=== PATIENT | female | born 1960 | race Caucasian/White ===

== ENCOUNTER 2019-07-23 10:28 | Emergency (ER) | payer OTHER, MEDICAID, SELFPAY ==
[2019-07-23 10:37] VITALS: BP 109/58; PULSE 63; RESP 12; TEMP 36.1; O2SAT 99
[2019-07-23 11:04] LABS: Alanine Aminotransferase 17 IU/L (<35)
--- NOTE | 2019-07-23 11:45 | ED.GENADULT ---
HPI - General Adult <KELLY Buck-BC - Last Filed: 07/23/19 12:50> General Chief complaint: Blood/Body fluid exposure Stated complaint: needle stick Time Seen by Provider: 07/23/19 11:02 Source: patient Mode of arrival: Ambulatory Limitations: no limitations History of Present Illness HPI narrative: The patient is a 58-year-old female current smoker with history of ?autoimmune situation who presents by herself for chief complaint of a needlestick at 2:00 p.m. yesterday. She states her tetanus might be up-to-date, but she is not sure. She states she has had the hepatitis-B vaccination. She states she was helping her friend who is a diabetic when she accidentally stuck herself with a needle yesterday at 2:00 p.m.. She has not informed her friend that she has stuck herself. She has not followed up with primary care provider. She states her friend is going on hospice, she has very low suspicion of hepatitis, HIV, states that she recently tested negative she thinks. She states that she stuck herself on her left palm, it was not bad enough that she blood. She states that there was a hole in her skin, but she was not bleeding. She has washed out with soap and water copiously. Related Data Previous Rx's Medication Instructions Recorded albuterol sulfate [Ventolin HFA] 1 puff INH Q4H PRN #1 inh 03/22/16 Allergies Allergy/AdvReac Type Severity Reaction Status Date / Time ibuprofen [IBUPROFEN] Allergy Unknown Verified 07/23/19 11:47 indomethacin [INDOMETHACIN] Allergy Unknown Verified 07/23/19 11:47 prednisone [PREDNISONE] Allergy Unknown Verified 07/23/19 11:47 Review of Systems <KELLY Buck-BC - Last Filed: 07/23/19 12:50> Review of Systems Narrative: GENERAL: Denies chills, fatigue, malaise, fever, sweats. HEENT: Denies sinus pain, ear pain, sore throat, difficulty swallowing, dizziness. RESPIRATORY: Denies dyspnea, cough, wheezing, hemoptysis, sputum. CARDIOVASCULAR: Denies chest pain, palpitations, orthopnea, edema, GASTROINTESTINAL: Denies nausea, vomiting, abdominal pain, diarrhea, constipation, melena. : Denies dysuria, frequency, incontinence, hematuria, urinary retention. MUSCULOSKELETAL: denies weakness, joint pain, or bony pain SKIN: See HPI NEUROLOGIC: Denies weakness, headache, numbness, change in speech, confusion, seizures, incoordination. PSYCHIATRIC: No concerning psychosocial issues. 12 point review of systems is negative except for those stated above Patient History <JOE Buck - Last Filed: 07/23/19 12:50> Surgical History History of carpal tunnel repair Family History Father Drug abuse Mother Bipolar 1 disorder, depressed Social History Smoking Status: Current some day smoker Smoking Status: Current some day smoker alcohol intake frequency: holidays/special occasions only Substance Use Type: does not use Exam <JOE Buck - Last Filed: 07/23/19 12:50> Narrative Exam Narrative: GENERAL: This is a well-nourished, well-developed patient, no acute distress HEAD: Atraumatic. Normocephalic. No temporal or scalp tenderness. EYES: Pupils equal round and reactive. Extraocular motions intact. No scleral icterus. No injection or drainage. ENT: Nose without bleeding, purulent drainage or septal hematoma. Throat without erythema, tonsillar hypertrophy or exudate. Uvula midline. Airway patent. NECK: Trachea midline. No JVD or lymphadenopathy. Supple, nontender, no meningeal signs. CARDIOVASCULAR: Regular rate and rhythm= RESPIRATORY: No cough. No increased respiratory effort. No accessory muscle use. Speaking full sentences. EXTREMITIES: Using all extremities fully. BACK: Nontender without deformity or crepitance. No flank tenderness. NEURO: AOx3. SKIN: No visible puncture gunter on bilateral hands. Initial Vital Signs Initial Vital Signs: Vital Signs Temperature 96.9 F L 07/23/19 10:37 Pulse Rate 63 07/23/19 10:37 Respiratory Rate 12 07/23/19 10:37 Blood Pressure 109/58 L 07/23/19 10:37 Pulse Oximetry 99 07/23/19 10:37 <Tracye Greene DO - Last Filed: 07/24/19 07:21> Initial Vital Signs Initial Vital Signs: Vital Signs Temperature 96.9 F L 07/23/19 10:37 Pulse Rate 63 07/23/19 10:37 Respiratory Rate 12 07/23/19 10:37 Blood Pressure 109/58 L 07/23/19 10:37 Pulse Oximetry 99 07/23/19 10:37 Course <JOE Buck - Last Filed: 07/23/19 12:50> Orders Ordered: Discontinued Medications Diphtheria/Tetanus/Acell Pertussis (Adacel) 0.5 ml IM .ONCE ONE Stop: 07/23/19 11:16 Last Admin: 07/23/19 11:47 Dose: 0.5 ml Documented by: ANTOINE Vital Signs Vital signs: Vital Signs - 8 hr 07/23/19 10:37 Temperature 96.9 F L Pulse Rate 63 Respiratory Rate 12 Blood Pressure 109/58 L Pulse Oximetry 99 <Tracey Greene DO - Last Filed: 07/24/19 07:21> Orders Ordered: Discontinued Medications Diphtheria/Tetanus/Acell Pertussis (Adacel) 0.5 ml IM .ONCE ONE Stop: 07/23/19 11:16 Last Admin: 07/23/19 11:47 Dose: 0.5 ml Documented by: ANTOINE Vital Signs Vital signs: Vital Signs - 8 hr 07/23/19 10:37 Temperature 96.9 F L Pulse Rate 63 Respiratory Rate 12 Blood Pressure 109/58 L Pulse Oximetry 99 Medical Decision Making <JOE Buck - Last Filed: 07/23/19 12:50> Lab Data Labs: Lab Results 07/23/19 07/23/19 Range/Units 10:48 10:48 ALT 17 (<35) IU/L Hep Bs Antigen Negative (NEGATIVE) s/c Hepatitis C Antibody Negative (NEGATIVE) s/c HIV 1&2 Ab/P24 Ag 4thGn Negative (NEGATIVE) MDM Narrative Medical decision making narrative: The patient is a 58-year-old female who presents with a chief complaint of a needlestick injury yesterday from a friend at home. Patient states that she believes she is negative for HIV, hepatitis etcetera. She has not informed the source patient of the injury. The patient had lab work drawn as an exposure panel. Her tetanus is updated as she was not sure when her last tetanus was. 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 She did give consent for testing of HIV. She does not want any prophylactic treatment at this point time as the exposure is low risk. She also states that she did not bleed from the needle stick. I discussed at length the importance of follow-up with primary care provider, she may need repeat lab work, following up the source patient etcetera. Patient has no questions or concerns upon discharge and states understanding of return precautions as well as follow-up care. <Tracey Greene DO - Last Filed: 07/24/19 07:21> Lab Data Labs: Lab Results 07/23/19 07/23/19 Range/Units 10:48 10:48 ALT 17 (<35) IU/L Hep Bs Antigen Negative (NEGATIVE) s/c Hepatitis C Antibody Negative (NEGATIVE) s/c HIV 1&2 Ab/P24 Ag 4thGn Negative (NEGATIVE) Discharge Plan Departure Patient Disposition: Home Clinical Impression: Needle stick injury Discharge Date/Time: 07/23/19 12:33 Instructions: DI for Accidental Exposure to Body Fluids Activity Restrictions/Additional Instructions: Please follow-up with primary care provider in the next few days. We have baseline exposure labs pending here, we will need follow-up lab work. I also suggest discussing this with the source patient as well. Please come back to emergency department for any acute concerns Prescriptions: No Action albuterol sulfate [Ventolin HFA] 90 MCG/PUFF HFA aerosol inhaler 1 puff INH Q4H PRNQty: 1 RF: 0 Referrals: Yuridia Hays DO [Primary Care Provider] -
[2019-07-23] MEDS: TET,DIPH,PERTUSS(ACELL),VAC/PF 0.5 ML SYRINGE IM (11:47)
[2019-07-23 11:57] LABS: Hepatitis B Surface Antigen NEGATIVE s/c (NEGATIVE)
[2019-07-23 12:04] LABS: HIV 1 & 2 Ab/Ag 4th Gen Combo NEGATIVE (NEGATIVE); Hep C Virus Ab w/Reflex Quant NEGATIVE s/c (NEGATIVE)
[2019-07-24 15:34] LABS: Hepatitis B Surf Ab Qualitativ Reactive (Nonreactive)
== END 2019-07-23 12:33 | disposition home or self-care (01) ==
PROVIDERS: Emergency Medicine; Emergency Provider Nurse Practitioner Family; Family Provider Family Medicine; PCP Family Medicine
DX: Z77.21 Contact with and (suspected) exposure to potentially hazardous body fluids (principal); W46.0XXA Contact with hypodermic needle, initial encounter; Z23 Encounter for immunization
CPT/HCPCS: 36415; 84460; 86706; 86803; 87340; 87389; 90471; 99283; 90715

== ENCOUNTER 2020-02-02 21:04 | Emergency (ER) | payer OTHER, MEDICAID, SELFPAY ==
[2020-02-02 21:11] VITALS: BP 114/72; PULSE 60; RESP 17; TEMP 36.6; O2SAT 97; BMI 23.3
--- NOTE | 2020-02-02 21:52 | ED.GENADULT ---
HPI - General Adult General Chief complaint: Extremity Injury, Upper Stated complaint: multiple complaints Time Seen by Provider: 02/02/20 21:30 Source: patient Mode of arrival: Family Vehicle Limitations: no limitations History of Present Illness HPI narrative: 59 year old former smoker with history of asthma and some vague chronic but episodic neurologic problems presents with various complaints, but is most concerned about a painful purple bruiselike lesion that spontaneously appeared at the base of her thumb earlier today. She says it happened out of nowhere and denies any injury. She has an achy pain that is worse with motion or palpation. She denies numbness or tingling. She states it has happened a few times in the past 10 years. Additionally she has pain in her left elbow since bumping it a few weeks ago. It is much better now, but still bothers her on occasion and seems to be worse with motion. Finally she also has pain, swelling, and some brusiing on the medial aspect of her Right ankle since rolling it a few weeks ago. She denies numbness, tingling, or weakness. Onset (ago): week(s) Radiation: non-radiation Severity: mild Quality: aching Pain Consistency: constant Relieving factors: none Exacerbating factors: movement Treatments prior to arrival: none Related Data Previous Rx's Medication Instructions Recorded albuterol sulfate [Ventolin HFA] 1 puff INH Q4H PRN #1 inh 03/22/16 Allergies Allergy/AdvReac Type Severity Reaction Status Date / Time ibuprofen [IBUPROFEN] Allergy Unknown Verified 02/02/20 21:17 indomethacin [INDOMETHACIN] Allergy Unknown Verified 02/02/20 21:17 prednisone [PREDNISONE] Allergy Unknown Verified 02/02/20 21:17 Review of Systems Constitutional Constitutional: Denies chills, Denies fatigue, Denies fever(s), Denies frequent falls, Denies lethargy and Denies weakness Eyes Eyes: Denies change in vision, Denies eye discharge, Denies irritation and Denies loss of vision ENT Ears, Nose, Mouth, and Throat: Denies change in voice, Denies dizziness, Denies neck pain, Denies sore throat and Denies throat swelling Cardiovascular Cardiovascular: Denies chest pain, Denies irregular heart rhythm, Denies lightheadedness, Denies palpitations, Denies dyspnea, Denies dyspnea on exertion and Denies orthopnea Respiratory Respiratory: Denies cough, Denies dyspnea, Denies dyspnea on exertion and Denies wheezing Gastrointestinal Gastrointestinal: Denies abdominal pain, Denies change in bowel habits, Denies diarrhea, Denies nausea and Denies vomiting Musculoskeletal Musculoskeletal: Reports joint swelling, Reports limited range of motion, Denies neck pain and Denies numbness Integumentary/Breasts Skin/Breast: Denies pruritus, Denies erythema, Denies rash, Reports unusual bruising and Denies wounds Neurologic Neurologic: Denies behavioral changes, Denies confusion, Denies dizziness, Denies frequent falls, Denies loss of vision, Denies numbness and Denies weakness Psychiatric Psychiatric: Denies anxiety, Denies behavioral changes, Denies confusion, Denies depression, Denies homicidal ideation and Denies suicidal ideation Endocrine Endocrine: Denies fatigue, Denies flushing and Denies palpitations Hematologic/Lymphatic Hematologic/Lymphatic: Denies easy bruising Allergic/Immunologic Allergic/Immunologic: Denies urticaria, Denies throat swelling and Denies wheezing Patient History Surgical History History of carpal tunnel repair Family History Father Drug abuse Mother Bipolar 1 disorder, depressed Social History Smoking Status: Former smoker Smoking Status: Former smoker alcohol intake frequency: a few times a week Alcohol type: beer Substance Use Type: marijuana Exam Narrative Exam Narrative: GENERAL: [59] year old patient appears stated age. Well-nourished, well-developed patient, in mild distress. HEAD: Atraumatic. Normocephalic. EYES: Pupils equal round and reactive. Extraocular motions intact. No scleral icterus. No injection or drainage. ENT: Nose without bleeding, purulent drainage. Throat without erythema, tonsillar hypertrophy or exudate. Airway patent. NECK: Trachea midline. Non tender CARDIOVASCULAR: Regular rate and rhythm without murmurs, gallops, or rubs. RESPIRATORY: Clear to auscultation. Breath sounds equal bilaterally. No wheezes, rales, or rhonchi. GASTROINTESTINAL: Abdomen soft, non-tender, nondistended. EXTREMITIES: Quarter sized area of ecchymosis, tender to palp on thenar eminence of right hand. No break in the skin. No bony pain. No fluctuance. Left elbow has full painless range of motion, no deformity, full strength. Right ankle with pain and mild ecchymosis on medial malleolus. No pain over anterior talus, lateral malloelus. No ligamentous instability BACK: Nontender without deformity or crepitance. No flank tenderness. NEURO: AOx3. SKIN: No rash or erythema of visible areas Initial Vital Signs Initial Vital Signs: Vital Signs Temperature 97.8 F 02/02/20 21:11 Pulse Rate 60 02/02/20 21:11 Respiratory Rate 17 02/02/20 21:11 Blood Pressure 114/72 02/02/20 21:11 Pulse Oximetry 97 02/02/20 21:11 Course Orders Ordered: ED Orders 02/02/20 21:53 XR ankle RT min 3V Stat XR elbow LT min 3V Stat 02/02/20 22:27 Basic Metabolic Panel Stat Complete Blood Count AUTO DIFF Stat Prothrombin Time INR Stat Vital Signs Vital signs: Vital Signs - 8 hr 02/02/20 21:11 02/02/20 23:01 Temperature 97.8 F Pulse Rate 60 56 L Respiratory Rate 17 16 Blood Pressure 114/72 120/60 Pulse Oximetry 97 98 Medical Decision Making Lab Data Result diagrams: 02/02/20 22:27 02/02/20 22:27 Labs: Lab Results 02/02/20 02/02/20 02/02/20 Range/Units 22:27 22:27 22:27 WBC 6.1 (4.5-11.0) X10^3/uL RBC 4.53 (4.0-5.2) X10^6/uL Hgb 13.1 (12.0-16.0) g/dL Hct 39.7 (36-46) % MCV 87.5 (80-100) fL MCH 28.9 (26-34) PG MCHC 33.0 (30-36) % RDW 13.4 (11.6-14.8) % Plt Count 194 (150-400) X10^3/uL Neut % (Auto) 49.7 L (50-75) % Lymph % (Auto) 38.5 (25-40) % [place] % (Auto) 8.3 (3-14) % Eos % (Auto) 2.1 (2-4) % Baso % (Auto) 1.4 (0-2) % Neut # (Auto) 3000 (8060-4244) /uL Lymph # (Auto) 2300 (5996-0873) /uL [place] # (Auto) 500 (0-900) /uL Eos # (Auto) 100 (0-450) /uL Baso # (Auto) 100 (0-100) /uL PT 11.8 (10.1-12.7) SECONDS INR 1.0 (0.9-1.3) Sodium 136 L (137-145) mmol/L Potassium 4.0 (3.4-5.1) mmol/L Chloride 104 (98-107) mmol/L Carbon Dioxide 27 (22-32) mmol/L BUN 19 H (7-17) mg/dL Creatinine 0.79 (0.52-1.04) mg/dL Estimated GFR > 60.0 (>60) mL/min BUN/Creatinine Ratio 24.1 H (6-22) Glucose 97 (80-110) mg/dL Calcium 9.2 (8.4-10.2) mg/dL Imaging Data Extremity x-ray #1: Attestation: I personally reviewed and interpreted this imaging study as follows: My Impression: NESTOR Ankle Xray: Attestation: I personally reviewed and interpreted this imaging study as follows: My Impression: NESTOR MDM Narrative Medical decision making narrative: NO obvious abnormal findings on xrays and very reassuring physical exam. Regarding the spontaneous bruise on thumb, labs reviewed and no platelet or coag abnormalites, no injury. Discharge Plan Departure Patient Disposition: Home Clinical Impression: Left elbow pain Inversion sprain of right ankle Qualifiers: Encounter type: initial encounter Qualified Code(s): S93.401A - Sprain of unspecified ligament of right ankle, initial encounter Paroxysmal hematoma of right hand Qualifiers: Encounter type: initial encounter Qualified Code(s): S60.221A - Contusion of right hand, initial encounter Discharge Date/Time: 02/02/20 23:01 Instructions: DI for Ankle Sprain, DI for Hematoma (Bruise), DI for Elbow Sprain Activity Restrictions/Additional Instructions: *You have been diagnosed with [nonspecific hematoma right hand with reassuring labs. Unremarkable x-ray of right ankle and elbow.] *What to do: *Take medications as directed *Follow up with your primary care provider in 2-3 days, call for an appointment. Let them know you were seen in the Emergency Department and that we ask that you be seen in follow up *Return to ER if you should have any new, worsening or concerning symptoms Prescriptions: No Action albuterol sulfate [Ventolin HFA] 90 MCG/PUFF HFA aerosol inhaler 1 puff INH Q4H PRNQty: 1 RF: 0 Referrals: Yuridia Hays DO [Primary Care Provider] -
--- NOTE | 2020-02-02 21:53 | DI.RAD.S_ITS ---
PROCEDURE: XR ELBOW LT MIN 3V INDICATIONS: left elbow pain since injury 3 weeks ago TECHNIQUE: 3 views of the elbow were acquired. COMPARISON: None. FINDINGS: Bones: No fractures or dislocations. No suspicious bony lesions. Soft tissues: No elbow joint effusion. No suspicious soft tissue calcifications. IMPRESSION: No fracture. No osseous lesion. If symptoms and/or clinical suspicion for pathology persists, further assessment with repeat radiographs (7-10 days) or advanced imaging (e.g. CT, MRI or bone scan) may be helpful. Dictated by: Maria Esther Reaves MD, PhD on 02/03/2020 at 8:29 Approved by: Maria Esther Reaves MD, PhD on 02/03/2020 at 8:30
--- NOTE | 2020-02-02 21:53 | DI.RAD.S_ITS ---
PROCEDURE: XR ANKLE RT MIN 3V INDICATIONS: right ankle injury, bruising and pain TECHNIQUE: 3views of the ankle were acquired. COMPARISON: None. FINDINGS: Bones: No fractures or dislocations. Ankle mortise is normally aligned. No suspicious bony lesions. Soft tissues: No tibiotalar joint effusion. Achilles tendon appears normal. IMPRESSION: No fracture. No osseous lesion. If symptoms and/or clinical suspicion for pathology persists, further assessment with repeat radiographs (7-10 days) or advanced imaging (e.g. CT, MRI or bone scan) may be helpful. Dictated by: Maria Esther Reaves MD, PhD on 02/03/2020 at 8:30 Approved by: Maria Esther Reaves MD, PhD on 02/03/2020 at 8:31
[2020-02-02 22:38] LABS: Add Manual Diff / Slide Review NO; Basophils Absolute Auto 100 /uL (0-100); Basophils Percent Auto 1.4 % (0-2); Eosinophils Absolute Auto 100 /uL (0-450); Eosinophils Percent Auto 2.1 % (2-4); Hematocrit 39.7 % (36-46); Hemoglobin 13.1 g/dL (12.0-16.0); Lymphocytes Absolute Auto 2300 /uL (1100-4500); Lymphocytes Percent Auto 38.5 % (25-40); Mean Corpuscular Hemoglobin 28.9 PG (26-34); Mean Corpuscular Volume 87.5 fL (80-100); Monocytes Absolute Auto 500 /uL (0-900); Monocytes Percent Auto 8.3 % (3-14); Neutrophils Absolute Auto 3000 /uL (1500-7000); Neutrophils Percent Auto 49.7 % (50-75); Platelet Count 194 X10^3/uL (150-400); Red Blood Cell Count 4.53 X10^6/uL (4.0-5.2); Red Cell Distribution Width 13.4 % (11.6-14.8); White Blood Cell Count 6.1 X10^3/uL (4.5-11.0)
[2020-02-02 22:43] LABS: Prothrombin Time 11.8 SECONDS (10.1-12.7)
[2020-02-02 22:46] LABS: BUN Creatinine Ratio 24.1 (6-22); Blood Urea Nitrogen 19 mg/dL (7-17); Calcium 9.2 mg/dL (8.4-10.2); Carbon Dioxide 27 mmol/L (22-32); Chloride 104 mmol/L (98-107); Estimated Glomerular Filt Rate > 60.0 mL/min (>60); Glucose 97 mg/dL (80-110); HEMOLYSIS 41 (0-50); Sodium 136 mmol/L (137-145)
[2020-02-02 23:01] VITALS: BP 120/60; PULSE 56; RESP 16; O2SAT 98
== END 2020-02-02 23:01 | disposition home or self-care (01) ==
PROVIDERS: Emergency Provider Emergency Medicine; Family Provider Family Medicine; PCP Family Medicine; Referring Provider Internal Medicine
DX: S93.401A Sprain of unspecified ligament of right ankle, initial encounter (principal); S60.221A Contusion of right hand, initial encounter; M25.522 Pain in left elbow
CPT/HCPCS: 36415; 73080; 73610; 80048; 85025; 85610; 99284

== ENCOUNTER → 2020-05-07 13:45 | Outpatient (CLI) | payer OTHER, MEDICAID, SELFPAY | PROVIDERS: Family Provider Family Medicine; PCP Internal Medicine; Referring Provider Internal Medicine; Visit Provider Internal Medicine | DX: M85.852 Other specified disorders of bone density and structure, left thigh (principal); Z78.0 Asymptomatic menopausal state; Z82.62 Family history of osteoporosis | CPT/HCPCS: 77080 ==

== ENCOUNTER 2023-02-18 15:22 | Emergency (ER) | payer OTHER, MEDICAID, SELFPAY ==
[2023-02-18] VITALS (31 sets, daily range): BP systolic 113–158; BP diastolic 56–115; PULSE 48–64; RESP 15–36; TEMP 36.6; O2SAT 96–99; BMI 24.2
--- NOTE | 2023-02-18 15:39 | DI.RAD.S_ITS ---
PROCEDURE: XR CHEST 1V INDICATIONS: chest pain TECHNIQUE: One view of the chest was acquired. COMPARISON: [facility], , CHEST 2 VIEW, 06/22/2011, 15:19. FINDINGS: Surgical changes and devices: None. Lungs and pleura: Lungs are clear. No pleural effusions or pneumothorax. Mediastinum: Mediastinal contours appear normal. Heart size is normal. Bones and chest wall: No suspicious bony lesions. Overlying soft tissues appear unremarkable. IMPRESSION: No acute cardiopulmonary findings Approved by: Gerardo Arthur M.D. on 02/18/2023 at 15:49
[2023-02-18 16:29] LABS: Add Manual Diff / Slide Review NO; Basophils Absolute Auto 100 /uL (0-100); Basophils Percent Auto 0.8 % (0-2); Eosinophils Absolute Auto 100 /uL (0-450); Eosinophils Percent Auto 1.4 % (2-4); Hematocrit 40.1 % (36-46); Hemoglobin 13.7 g/dL (12.0-16.0); Lymphocytes Absolute Auto 1900 /uL (1100-4500); Lymphocytes Percent Auto 28.3 % (25-40); Mean Corpuscular HGB Conc 34.1 % (30-36); Monocytes Absolute Auto 500 /uL (0-900); Monocytes Percent Auto 7.9 % (3-14); Neutrophils Absolute Auto 4200 /uL (1500-7000); Neutrophils Percent Auto 61.6 % (50-75); Platelet Count 191 X10^3/uL (150-400); Red Blood Cell Count 4.72 X10^6/uL (4.0-5.2); White Blood Cell Count 6.9 X10^3/uL (4.5-11.0)
[2023-02-18 16:34] LABS: INR 1.1 (0.9-1.3); Prothrombin Time 12.2 SECONDS (10.1-12.7)
[2023-02-18 16:36] LABS: PTT Partial Thromboplastin Tim 29 SECONDS (26-36)
[2023-02-18 16:37] LABS: Alanine Aminotransferase 17 IU/L (<35); Albumin 4.2 g/dL (3.5-5.0); Albumin Globulin Ratio 1.6 (1.0-2.8); Alkaline Phosphatase 51 U/L (38-126); Aspartate Aminotransferase 29 IU/L (14-36); BUN Creatinine Ratio 21.9 (6-22); Bilirubin Total 0.8 mg/dL (0.2-1.3); Blood Urea Nitrogen 16 mg/dL (7-17); Calcium 9.2 mg/dL (8.4-10.2); Carbon Dioxide 26 mmol/L (22-32); Chloride 107 mmol/L (98-107); Creatine Kinase 72 U/L (30-135); Estimated Glomerular Filt Rate > 60 mL/min (>60); Globulin 2.7 g/dL (1.7-4.1); Glucose 103 mg/dL (80-110); Lipase 91 U/L (23-300); Potassium 3.9 mmol/L (3.4-5.1); Sodium 138 mmol/L (137-145); Total Protein 6.9 g/dL (6.3-8.2)
[2023-02-18 16:40] LABS: HEMOLYSIS 56 (0-50)
[2023-02-18 16:48] LABS: Troponin I < 0.012 ng/mL (0.01-0.034)
[2023-02-18 18:43] LABS: Troponin I < 0.012 ng/mL (0.01-0.034)
--- NOTE | 2023-02-18 18:55 | ED_ITS ---
HPI - Chest Pain General Chief Complaint: Chest Pain Stated Complaint: Low BP, Chest Pain Time Seen by Provider: 02/18/23 16:31 Source: patient Mode of arrival: Ambulatory Limitations: no limitations History of Present Illness HPI narrative: 62-year-old female former smoker presents with a chief complaint low blood pressures reading in the 70s and 80s over the course of the night which she states happens on occasion but seemingly with increasing frequency. She does not take any blood pressure meds. Additionally she complained of some left- sided chest pain this morning that seemed to go away when she thumps her chest. She is asymptomatic on her arrival. She states that she is been having troubles with episodic low blood pressure ever since she had some undiagnosed infectious process that she thinks may have been meningitis back in 2017. She denies any current chest pain or shortness of breath. She denies exertional symptoms or cardiac equivalent such as dizziness, weakness, lightheadedness. She denies exercise intolerance. Related Data Previous Rx's Medication Instructions Recorded albuterol sulfate 90 mcg/actuation 1 puff INH Q4H PRN #1 inh 03/22/16 aerosol inhaler (Ventolin HFA) Allergies Allergy/AdvReac Type Severity Reaction Status Date / Time ibuprofen [IBUPROFEN] Allergy Unknown Verified 02/02/20 21:17 indomethacin [INDOMETHACIN] Allergy Unknown Verified 02/02/20 21:17 prednisone [PREDNISONE] Allergy Unknown Verified 02/02/20 21:17 Review of Systems Review of Systems Narrative: GENERAL: See HPI HEENT: Denies sinus pain, ear pain, sore throat, difficulty swallowing, dizzi ness. RESPIRATORY: Denies dyspnea, cough, wheezing, hemoptysis, sputum. CARDIOVASCULAR: See HPI GASTROINTESTINAL: Denies nausea, vomiting, abdominal pain, diarrhea, constipation, melena. : Denies dysuria, frequency, incontinence, hematuria, urinary retention. MUSCULOSKELETAL: denies weakness, joint pain, or bony pain SKIN: Denies rash, skin lesions, or other NEUROLOGIC: Denies weakness, headache, numbness, change in speech, confusion, seizures, incoordination. PSYCHIATRIC: No concerning psychosocial issues. 12 point review of systems is negative except for those stated above Patient History Surgical History History of carpal tunnel repair Family History Father Drug abuse Mother Bipolar 1 disorder, depressed Social History Smoking Status: Former smoker Smoking Status: Former smoker alcohol intake frequency: a few times a week Alcohol type: beer Substance Use Type: marijuana Exam Narrative Exam Narrative: GENERAL: [62] year old patient appears stated age. Well-developed patient, in mild distress. HEAD: Atraumatic. Normocephalic. EYES: Pupils equal round and reactive. Extraocular motions intact. No scleral icterus. No injection or drainage. ENT: Nose without bleeding, purulent drainage. Throat without erythema, tonsillar hypertrophy or exudate. Airway patent. NECK: Trachea midline. Non tender CARDIOVASCULAR: Regular rate and rhythm without murmurs, gallops, or rubs. RESPIRATORY: Clear to auscultation. Breath sounds equal bilaterally. No wheezes, rales, or rhonchi. GASTROINTESTINAL: Abdomen soft, non-tender, nondistended. EXTREMITIES: No edema or joint tenderness. BACK: Nontender without deformity or crepitance. No flank tenderness. NEURO: AOx3. SKIN: No rash or erythema of visible areas Initial Vital Signs Initial Vital Signs: Vital Signs Temperature 98 F 02/18/23 15:29 Pulse Rate 64 02/18/23 15:29 Respiratory Rate 22 02/18/23 15:29 Blood Pressure 147/67 H 02/18/23 15:29 Pulse Oximetry 98 02/18/23 15:29 Oxygen Delivery Method Room Air 02/18/23 15:29 Scores HEART Score Heart Score history: Slightly Suspicious Heart Score EKG: Normal Heart Score Age: 45-64 years old Heart Score risk factors: No known risk factors Heart Score troponin: < or = to normal limit Heart Score Total: 1 Course Orders Ordered: ED Orders 02/18/23 18:15 EKG-12 Lead Stat Vital Signs Vital signs: Vital Signs - 8 hr 02/18/23 19:15 02/18/23 19:15 02/18/23 19:20 Pulse Rate 51 L Respiratory Rate 19 Blood Pressure 125/56 L 113/58 L Pulse Oximetry 97 02/18/23 19:20 02/18/23 19:26 02/18/23 19:26 Pulse Rate 58 L 54 L Respiratory Rate 23 29 H Blood Pressure 145/65 H Pulse Oximetry 96 97 02/18/23 19:30 02/18/23 19:30 Pulse Rate 53 L Respiratory Rate 25 H Blood Pressure 137/63 Pulse Oximetry 97 MDM - Chest Pain Lab Data 02/18/23 16:17 02/18/23 16:17 Labs: Lab Results 02/18/23 02/18/23 02/18/23 Range/Units 16:17 16:17 16:17 WBC 6.9 (4.5-11.0) X10^3/uL RBC 4.72 (4.0-5.2) X10^6/uL Hgb 13.7 (12.0-16.0) g/dL Hct 40.1 (36-46) % MCV 85.0 (80-100) fL MCH 29.0 (26-34) PG MCHC 34.1 (30-36) % RDW 14.0 (11.6-14.8) % Plt Count 191 (150-400) X10^3/uL Neut % (Auto) 61.6 (50-75) % Lymph % (Auto) 28.3 (25-40) % [place] % (Auto) 7.9 (3-14) % Eos % (Auto) 1.4 L (2-4) % Baso % (Auto) 0.8 (0-2) % Neut # (Auto) 4200 (5400-2776) /uL Lymph # (Auto) 1900 (4869-6267) /uL [place] # (Auto) 500 (0-900) /uL Eos # (Auto) 100 (0-450) /uL Baso # (Auto) 100 (0-100) /uL PT 12.2 (10.1-12.7) SECONDS INR 1.1 (0.9-1.3) APTT 29 (26-36) SECONDS Sodium 138 (137-145) mmol/L Potassium 3.9 (3.4-5.1) mmol/L Chloride 107 (98-107) mmol/L Carbon Dioxide 26 (22-32) mmol/L BUN 16 (7-17) mg/dL Creatinine 0.73 (0.52-1.04) mg/dL Estimated GFR > 60 (>60) mL/min BUN/Creatinine Ratio 21.9 (6-22) Glucose 103 (80-110) mg/dL Calcium 9.2 (8.4-10.2) mg/dL Magnesium 2.0 (1.6-2.3) mg/dL Total Bilirubin 0.8 (0.2-1.3) mg/dL AST 29 (14-36) IU/L ALT 17 (<35) IU/L Alkaline Phosphatase 51 (38-126) U/L Total Creatine Kinase 72 (30-135) U/L Troponin I < 0.012 (0.01-0.034) ng/mL Total Protein 6.9 (6.3-8.2) g/dL Albumin 4.2 (3.5-5.0) g/dL Globulin 2.7 (1.7-4.1) g/dL Albumin/Globulin Ratio 1.6 (1.0-2.8) Lipase 91 (23-300) U/L / Range/Units 18:10 WBC (4.5-11.0) X10^3/uL RBC (4.0-5.2) X10^6/uL Hgb (12.0-16.0) g/dL Hct (36-46) % MCV (80-100) fL MCH (26-34) PG MCHC (30-36) % RDW (11.6-14.8) % Plt Count (150-400) X10^3/uL Neut % (Auto) (50-75) % Lymph % (Auto) (25-40) % [place] % (Auto) (3-14) % Eos % (Auto) (2-4) % Baso % (Auto) (0-2) % Neut # (Auto) (0427-1393) /uL Lymph # (Auto) (7814-9239) /uL [place] # (Auto) (0-900) /uL Eos # (Auto) (0-450) /uL Baso # (Auto) (0-100) /uL PT (10.1-12.7) SECONDS INR (0.9-1.3) APTT (26-36) SECONDS Sodium (137-145) mmol/L Potassium (3.4-5.1) mmol/L Chloride (98-107) mmol/L Carbon Dioxide (22-32) mmol/L BUN (7-17) mg/dL Creatinine (0.52-1.04) mg/dL Estimated GFR (>60) mL/min BUN/Creatinine Ratio (6-22) Glucose (80-110) mg/dL Calcium (8.4-10.2) mg/dL Magnesium (1.6-2.3) mg/dL Total Bilirubin (0.2-1.3) mg/dL AST (14-36) IU/L ALT (<35) IU/L Alkaline Phosphatase (38-126) U/L Total Creatine Kinase (30-135) U/L Troponin I < 0.012 (0.01-0.034) ng/mL Total Protein (6.3-8.2) g/dL Albumin (3.5-5.0) g/dL Globulin (1.7-4.1) g/dL Albumin/Globulin Ratio (1.0-2.8) Lipase (23-300) U/L Urine Dip Bedside Urine Glucose Negative Bedside Urine Bilirubin - Negative Bedside Urine Ketone - Negative Urine Specific [place] 1.000 Bedside Urine Occult Blood - Negative Bedside Urine pH 6.0 Bedside Urine Protein - Negative Bedside Urine Urobilinogen - Negative Bedside Urine Nitrite - Negative Bedside Urine Leukocytes - Negative Esterase MDM Narrative Medical decision making narrative: [62] year old patient presents with episodes of low blood pressure and chest pain resolved earlier this morning Multiple etiologies for patient's symptoms considered including, but not limited to: [Cardiac ischemia versus electrolyte abnormality versus dehydration versus a Prior Charts reviewed in our EMR Primary Historian: patient Labs reviewed and interpreted by myself: No leukocytosis or left shift, no evidence of anemia, electrolytes, renal function and troponin are all within normal Imaging reviewed: CXR without acute findings Patient's symptoms improved over duration of stay with above-stated therapies. Cardiac ischemia considered but thought unlikely given atypical presentation, nonischemic EKG, troponin negative x2, lack of exertional symptoms or exercise intolerance. Etiology of episodic low blood pressure unclear, no signs of dehydration, anemia, electrolyte abnormality. Findings and discharge diagnosis discussed with patient/family followed by verbalization of understanding Return precautions discussed with patient/family whom verbalize understanding of diagnosis and plan Discharge Plan Departure Patient Disposition: Home Clinical Impression: Atypical chest pain, Acute hypotension Instructions: DI for Atypical Chest Pain Activity Restrictions/Additional Instructions: *You have been diagnosed with [atypical chest pain and episodes of low blood pressure. As we discussed your history and physical exam are reassuring as are labs and EKGs.] *What to do: *Please continue to take your regular medications as directed. [ ] New medication prescriptions sent to your pharmacy: [ ] [ ] New medication written as a paper prescription [ ] No new medications given *Please follow up with your primary care provider in 2-3 days, call for an appointment. Let them know you were seen in the Emergency Department and that we ask that you be seen in follow up. We will electronically transmit a record of today's note if your PCP is in our system *If you do not have a primary care provider please contact the [facility] Resource line at [phone]. They will ask some questions about your medical history and help get you set up with a doctor in the community. *Return to Emergency Department if you should have any new, worsening or concerning symptoms, such as [fever greater than 101 F, shaking chills, worsening pain, persistent vomiting or other bothersome symptoms] Prescriptions: No Action albuterol sulfate [Ventolin HFA] 90 MCG/PUFF HFA aerosol inhaler 1 puff INH Q4H PRNQty: 1 0RF Referrals: Teagan López MD [Primary Care Provider] - Stand Alone Forms: Patient Portal/API
== END 2023-02-18 19:42 | disposition home or self-care (01) ==
PROVIDERS: Emergency Medicine; Emergency Provider Emergency Medicine; Family Provider Family Medicine; PCP Internal Medicine
DX: R07.89 Other chest pain (principal); I95.9 Hypotension, unspecified
CPT/HCPCS: 36415; 71045; 80053; 81003; 82550; 83690; 83735; 84484; 85025; 85610; 85730; 93005; 99283; 99284

== ENCOUNTER 2023-12-29 08:44 | Emergency (ER) | payer OTHER, MEDICAID, SELFPAY ==
[2023-12-29 08:52] VITALS: BP 130/59; PULSE 78; RESP 20; TEMP 36.2; O2SAT 96
--- NOTE | 2023-12-29 08:57 | DI.RAD.S_ITS ---
PROCEDURE: XR FOOT RT MIN 3V INDICATIONS: base of 5th metatarsal pain after rolling ankle TECHNIQUE: 3 views of the foot were acquired. COMPARISON: None. FINDINGS: Bones: No fractures or dislocations. No suspicious bony lesions. Soft tissues: No tibiotalar joint effusion. Achilles tendon appears normal. IMPRESSION: No acute bony abnormality. Dictated by: Trini Shipman M.D. on 12/29/2023 at 9:39 Approved by: Trini Shipman M.D. on 12/29/2023 at 9:50
--- NOTE | 2023-12-29 08:58 | ED.GENADULT ---
HPI - General Adult General Chief complaint: Extremity Injury, Lower Stated complaint: Right foot pain Time Seen by Provider: 12/29/23 08:54 Source: patient Mode of arrival: Ambulatory Limitations: no limitations History of Present Illness HPI narrative: Patient is a 63-year-old female who is here for evaluation of right foot pain. States over the past several days she has accidentally rolled her right ankle 3 different occasions. She is still ambulatory however is having discomfort on the outside of her right foot. No other injuries from the event. Has been taking ibuprofen for the discomfort. Related Data Previous Rx's Medication Instructions Recorded albuterol sulfate 90 mcg/actuation 1 puff INH Q4H PRN #1 inh 03/22/16 aerosol inhaler (Ventolin HFA) Allergies Allergy/AdvReac Type Severity Reaction Status Date / Time ibuprofen [IBUPROFEN] Allergy Unknown Verified 02/02/20 21:17 indomethacin [INDOMETHACIN] Allergy Unknown Verified 02/02/20 21:17 prednisone [PREDNISONE] Allergy Unknown Verified 02/02/20 21:17 Review of Systems Musculoskeletal Musculoskeletal: Reports system reviewed and no additional complaints, except as documented Integumentary/Breasts Skin/Breast: Reports system reviewed and no additional complaints, except as documented Neurologic Neurologic: Reports system reviewed and no additional complaints, except as documented Patient History Surgical History History of carpal tunnel repair Family History Father Drug abuse Mother Bipolar 1 disorder, depressed Social History Smoking Status: Former smoker Smoking Status: Former smoker alcohol intake frequency: a few times a week Alcohol type: beer Substance Use Type: marijuana Exam Initial Vital Signs Initial Vital Signs: Vital Signs Temperature 97.1 F L 12/29/23 08:52 Pulse Rate 78 12/29/23 08:52 Respiratory Rate 20 12/29/23 08:52 Blood Pressure 130/59 L 12/29/23 08:52 Pulse Oximetry 96 12/29/23 08:52 Oxygen Delivery Method Room Air 12/29/23 08:52 Cardio Pulses: dorsalis pedis present on the right Skin General: no rashes or lesions noted Neuro Sensory Exam: no sensory deficits noted Extrem Other: Right foot: No discomfort at the proximal fibula. No discomfort over the mediolateral malleolus. Achilles tendon is intact. Does have discomfort at the base of the 5th metatarsal. No Lisfranc tenderness. Course Orders Ordered: ED Orders 12/29/23 08:57 XR foot RT min 3V Stat Vital Signs Vital signs: Vital Signs - 8 hr 12/29/23 08:52 Temperature 97.1 F L Pulse Rate 78 Respiratory Rate 20 Blood Pressure 130/59 L Pulse Oximetry 96 Oxygen Delivery Method Room Air Medical Decision Making Imaging Data Extremity x-ray #1: My Impression: No fractures or dislocations noted MDM Narrative Medical decision making narrative: Patient has no ankle discomfort the discomfort is at the foot at the base of the 5th metatarsal. X-ray today shows no fractures or dislocations. I discuss this with her. She was wrapped with an Martin bandage for comfort. She can ambulate as tolerated. We discussed things she can try at home to help her symptoms. She expressed understanding and agreement with plan. Discharge Plan Departure Patient Disposition: Home Clinical Impression: Foot sprain Instructions: DI for Foot Sprain Activity Restrictions/Additional Instructions: You can walk on your right foot/leg as tolerated. Recommend using ice. You can use the Martin bandage as needed for comfort. Contact your primary provider for follow-up. Return to the emergency department for new symptoms. Prescriptions: No Action albuterol sulfate [Ventolin HFA] 90 MCG/PUFF HFA aerosol inhaler 1 puff INH Q4H PRNQty: 1 0RF Referrals: Teagan López MD [Primary Care Provider] - Stand Alone Forms: Patient Portal/API
== END 2023-12-29 09:23 | disposition home or self-care (01) ==
PROVIDERS: Emergency Provider Emergency Medicine; Family Provider Family Medicine; PCP Internal Medicine
DX: S93.601A Unspecified sprain of right foot, initial encounter (principal); X50.1XXA Overexertion from prolonged static or awkward postures, initial encounter
CPT/HCPCS: 73630; 99281; 99282

== ENCOUNTER → 2025-03-28 08:53 | Outpatient (CLI) | payer MEDICARE, MEDICAID, SELFPAY ==
[2025-03-28 09:54] LABS: Add Manual Diff / Slide Review NO; Hematocrit 42.7 % (36-46); Hemoglobin 14.4 g/dL (12.0-16.0); Lymphocytes Absolute Auto 1600 /uL (1100-4500); Mean Corpuscular HGB Conc 33.8 % (30-36); Mean Corpuscular Hemoglobin 29.1 PG (26-34); Mean Corpuscular Volume 85.9 fL (80-100); Platelet Count 213 X10^3/uL (150-400)
[2025-03-28 10:26] LABS: Cholesterol 202 mg/dL (140-199); HDL Cholesterol 72 mg/dL (40-60); Triglycerides 68 mg/dL (35-150); VLDL Cholesterol Calculated 14 mg/dL (2-30)
[2025-03-28 11:44] LABS: HIV 1 & 2 Ab/Ag 4th Gen Combo NEGATIVE (NEGATIVE); Hep C Virus Ab w/Reflex Quant NEGATIVE s/c (NEGATIVE)
== END ==
PROVIDERS: PCP Internal Medicine; Referring Provider Internal Medicine; Visit Provider Internal Medicine
DX: Z11.4 Encounter for screening for human immunodeficiency virus [HIV] (principal); J43.9 Emphysema, unspecified; J45.40 Moderate persistent asthma, uncomplicated; Z11.59 Encounter for screening for other viral diseases; Z13.6 Encounter for screening for cardiovascular disorders
CPT/HCPCS: 36415; 80061; 85025; 86803; 87389